=== PATIENT | male | born 1950 | race Caucasian/White ===

== ENCOUNTER 2017-10-03 10:31 | Inpatient (IN) | payer MEDICAID ==
[~2017-10-03] VITALS: Ht 172.7 cm; Wt 80.3 kg
[2017-10-03] MEDS ORDERED: ASPIRIN 325MG EC TABLET PO ONE (11:45)
[2017-10-03 12:11] LABS: BASOPHILS % 0.3 % (0.0-2.0); EOSINOPHILS % 0.1 % (0.0-5.0); HEMOGLOBIN. 14.7 g/dL (14.0-18.0); LYMPHOCYTES % 7.3 % (20.0-50.0); MEAN CORPUSCULAR HEMOGLOBIN 30.2 pg (28.0-32.0); MEAN CORPUSCULAR VOLUME 90.2 fL (80.0-94.0); MEAN PLATELET VOLUME 8.9 fl (7.4-10.4); MONOCYTES % 5.8 % (2.0-8.0); NEUTROPHILS % 86.5 % (40.0-76.0); PLATELET 110 x1000/uL (130-400); RED BLOOD CELL COUNT 4.87 mill/uL (4.7-6.1); RED CELL DISTRIBUTION WIDTH 15.7 % (11.6-14.6)
[2017-10-03 12:12] LABS: CHLORIDE 99 mEq/L (98-107)
[2017-10-03 12:15] LABS: INR 1.1; PARTIAL THROMBOPLASTIN TIME 26.1 sec (23.4-31.0)
[2017-10-03] MEDS ORDERED: SODIUM CHLORIDE 0.9% 1,000 ML IV ONE (12:39)
[2017-10-03] MEDS ORDERED: INSULIN REGULAR (HUMULIN R) UD 100 UNITS/ML SYR IV ONE (12:45)
[2017-10-03] MEDS ORDERED: HYDROCODONE/ACETAMINOPHEN 10/325MG TABLET PO PRN (19:15)
[2017-10-03] MEDS ORDERED: HYDROCODONE/ACETAMINOPHEN 5/325MG TABLET PO PRN (19:15)
[2017-10-03] MEDS ORDERED: DEXTROSE 50% WATER 50ML SYRINGE IV PRN (19:15)
[2017-10-03] MEDS ORDERED: MORPHINE SULFATE 4 MG/ML CPJ (NOT FOR IM USE) IV PRN (19:15)
[2017-10-03] MEDS ORDERED: ONDANSETRON HCL 4MG/2ML VIAL IV PRN (19:15)
[2017-10-03 20:00] VITALS: BP 104/69
[2017-10-03 20:25] LABS: BETA HYDROXYBUTYRATE 0.6 mMol/L (0.0-0.3)
[2017-10-03 20:27] LABS: CREATINE KINASE MB FRACTION 0.8 ng/mL (0.5-3.6)
[2017-10-03] MEDS: BLOOD SUGAR DIAGNOSTIC STRIP TEST SCH (21:00)
[2017-10-03] MEDS: ACETAMINOPHEN 325MG TABLET PO SCH (22:53)
[2017-10-03] MEDS: SODIUM CHLORIDE 0.45% 1,000 ML IV SCH (23:06)
[2017-10-03] MEDS: INSULIN LISPRO 100 UNITS/ML SUBCUT SCH (23:23)
[2017-10-04] VITALS: BP 107/71
[2017-10-04 04:00] VITALS: BP 92/56
[2017-10-04] MEDS: SODIUM CHLORIDE 0.45% 1,000 ML IV SCH ×2 (04:30→17:06)
[2017-10-04] MEDS: ACETAMINOPHEN 325MG TABLET PO SCH ×3 (05:00→20:59)
[2017-10-04] MEDS: BLOOD SUGAR DIAGNOSTIC STRIP TEST SCH ×4 (06:19→21:02)
[2017-10-04 06:48] LABS: CHLORIDE 106 mEq/L (98-107)
[2017-10-04 07:07] LABS: BASOPHILS % 0.3 % (0.0-2.0); EOSINOPHILS % 2.8 % (0.0-5.0); HEMATOCRIT. 40.4 % (42.0-52.0); HEMOGLOBIN. 13.7 g/dL (14.0-18.0); LYMPHOCYTES % 18.4 % (20.0-50.0); MEAN CORPUSCULAR HEMOGLOBIN 30.2 pg (28.0-32.0); MEAN PLATELET VOLUME 9.7 fl (7.4-10.4); MONOCYTES % 7.9 % (2.0-8.0); NEUTROPHILS % 70.6 % (40.0-76.0); PLATELET 108 x1000/uL (130-400); RED BLOOD CELL COUNT 4.54 mill/uL (4.7-6.1); RED CELL DISTRIBUTION WIDTH 15.7 % (11.6-14.6)
[2017-10-04 08:00] VITALS: BP 100/61
[2017-10-04] MEDS: INSULIN LISPRO 100 UNITS/ML SUBCUT SCH ×4 (08:07→21:27)
[2017-10-04 12:00] VITALS: BP 98/64
[2017-10-04] MEDS ORDERED: MAGNESIUM/ALUMINUM HYDROXIDE/SIMETHICONE 30ML UDC PO NR (12:30)
[2017-10-04] MEDS ORDERED: KCL 20MEQ/100ML PREMIX 100 ML IV NR (15:00)
[2017-10-04 16:00] VITALS: BP 110/74
[2017-10-04] MEDS ORDERED: IOHEXOL-300 100 ML BOTTLE ONE (19:23)
[2017-10-04 20:00] VITALS: BP 135/81
[2017-10-05] VITALS: BP 107/62
[2017-10-05 04:00] VITALS: BP 93/54
[2017-10-05] MEDS: ACETAMINOPHEN 325MG TABLET PO SCH ×3 (06:24→21:25)
[2017-10-05] MEDS: BLOOD SUGAR DIAGNOSTIC STRIP TEST SCH ×4 (06:26→21:25)
[2017-10-05 06:46] LABS: BASOPHILS % 0.4 % (0.0-2.0); EOSINOPHILS % 3.6 % (0.0-5.0); HEMATOCRIT. 42.6 % (42.0-52.0); HEMOGLOBIN. 14.4 g/dL (14.0-18.0); LYMPHOCYTES % 24.1 % (20.0-50.0); MEAN CORPUSCULAR HEMOGLOBIN 30.1 pg (28.0-32.0); MEAN CORPUSCULAR VOLUME 89.1 fL (80.0-94.0); MEAN PLATELET VOLUME 9.3 fl (7.4-10.4); MONOCYTES % 8.4 % (2.0-8.0); NEUTROPHILS % 63.5 % (40.0-76.0); PLATELET 126 x1000/uL (130-400); RED BLOOD CELL COUNT 4.78 mill/uL (4.7-6.1); RED CELL DISTRIBUTION WIDTH 15.7 % (11.6-14.6)
[2017-10-05] MEDS: INSULIN LISPRO 100 UNITS/ML SUBCUT SCH ×4 (06:46→21:25)
[2017-10-05 07:52] LABS: CHLORIDE 102 mEq/L (98-107)
[2017-10-05 08:00] VITALS: BP 97/61
[2017-10-05 08:00] LABS: AMYLASE 37 IU/L (25-115)
[2017-10-05 12:00] VITALS: BP 97/61
[2017-10-05 16:00] VITALS: BP 101/46
[2017-10-05] MEDS: SODIUM CHLORIDE 0.45% 1,000 ML IV SCH (17:41)
[2017-10-05 20:00] VITALS: BP 110/60
[2017-10-06] VITALS: BP 105/66
[2017-10-06] MEDS: PIPERACILLIN/TAZ 3.375G PREMIX 50 ML IV SCH ×5 (01:26→23:48)
[2017-10-06 04:00] VITALS: BP 112/60
[2017-10-06 06:26] LABS: BASOPHILS % 0.6 % (0.0-2.0); EOSINOPHILS % 3.7 % (0.0-5.0); HEMOGLOBIN. 15.2 g/dL (14.0-18.0); LYMPHOCYTES % 38.6 % (20.0-50.0); MEAN CORPUSCULAR HEMOGLOBIN 30.1 pg (28.0-32.0); MEAN CORPUSCULAR VOLUME 89.4 fL (80.0-94.0); MEAN PLATELET VOLUME 9.1 fl (7.4-10.4); MONOCYTES % 8.9 % (2.0-8.0); NEUTROPHILS % 48.2 % (40.0-76.0); PLATELET 142 x1000/uL (130-400); RED BLOOD CELL COUNT 5.03 mill/uL (4.7-6.1); RED CELL DISTRIBUTION WIDTH 15.9 % (11.6-14.6)
[2017-10-06] MEDS: ACETAMINOPHEN 325MG TABLET PO SCH ×3 (06:28→20:57)
[2017-10-06] MEDS: INSULIN LISPRO 100 UNITS/ML SUBCUT SCH ×4 (06:28→20:55)
[2017-10-06] MEDS: BLOOD SUGAR DIAGNOSTIC STRIP TEST SCH ×4 (06:29→20:55)
[2017-10-06 06:52] LABS: CHLORIDE 99 mEq/L (98-107)
[2017-10-06 07:06] LABS: AMYLASE 37 IU/L (25-115)
[2017-10-06 08:00] VITALS: BP 91/61
[2017-10-06 12:00] VITALS: BP 100/56
[2017-10-06 16:00] VITALS: BP 103/58
[2017-10-06] MEDS: SODIUM CHLORIDE 0.45% 1,000 ML IV SCH (17:01)
[2017-10-06 20:00] VITALS: BP 98/63
[2017-10-06] MEDS: CARVEDILOL 3.125 MG TABLET PO SCH (20:56)
[2017-10-06] MEDS: FUROSEMIDE 20MG TABLET PO SCH (20:57)
[2017-10-07] VITALS: BP 101/60
[2017-10-07 04:00] VITALS: BP 97/67
[2017-10-07] MEDS: ACETAMINOPHEN 325MG TABLET PO SCH ×3 (05:47→20:57)
[2017-10-07] MEDS: PIPERACILLIN/TAZ 3.375G PREMIX 50 ML IV SCH ×4 (05:48→23:08)
[2017-10-07] MEDS: BLOOD SUGAR DIAGNOSTIC STRIP TEST SCH ×4 (05:59→20:58)
[2017-10-07] MEDS: INSULIN LISPRO 100 UNITS/ML SUBCUT SCH ×4 (06:49→21:03)
[2017-10-07 07:02] LABS: BASOPHILS % 0.6 % (0.0-2.0); EOSINOPHILS % 4.8 % (0.0-5.0); HEMATOCRIT. 45.7 % (42.0-52.0); HEMOGLOBIN. 15.5 g/dL (14.0-18.0); MEAN CORPUSCULAR HEMOGLOBIN 30.3 pg (28.0-32.0); MEAN CORPUSCULAR VOLUME 89.1 fL (80.0-94.0); MONOCYTES % 8.2 % (2.0-8.0); NEUTROPHILS % 45.4 % (40.0-76.0); PLATELET 148 x1000/uL (130-400); RED BLOOD CELL COUNT 5.12 mill/uL (4.7-6.1)
[2017-10-07 08:00] VITALS: BP 87/62
[2017-10-07] MEDS: CARVEDILOL 3.125 MG TABLET PO SCH ×2 (08:16→20:57)
[2017-10-07] MEDS: LISINOPRIL 2.5MG TABLET PO SCH (08:16)
[2017-10-07] MEDS: FUROSEMIDE 20MG TABLET PO SCH ×2 (08:18→20:56)
[2017-10-07 08:26] LABS: CHLORIDE 100 mEq/L (98-107)
[2017-10-07] MEDS: INSULIN GLARGINE UD 100 UNITS/ML SYR SUBCUT SCH (11:14)
[2017-10-07 12:00] VITALS: BP 96/59
[2017-10-07] MEDS ORDERED: REGADENOSON 0.4 MG/5 ML IV ONE (14:15)
[2017-10-07 16:00] VITALS: BP 89/59
[2017-10-07 20:00] VITALS: BP 90/59
[2017-10-07] MEDS ORDERED: INSULIN GLARGINE UD 100 UNITS/ML SYR SUBCUT SCH (22:00)
[2017-10-08] VITALS: BP 94/67
[2017-10-08 04:00] VITALS: BP 96/57
[2017-10-08 05:05] LABS: BASOPHILS % 0.5 % (0.0-2.0); EOSINOPHILS % 4.8 % (0.0-5.0); HEMATOCRIT. 46.2 % (42.0-52.0); HEMOGLOBIN. 15.7 g/dL (14.0-18.0); MEAN CORPUSCULAR HEMOGLOBIN 30.3 pg (28.0-32.0); MEAN CORPUSCULAR VOLUME 89.2 fL (80.0-94.0); MEAN PLATELET VOLUME 8.9 fl (7.4-10.4); NEUTROPHILS % 51.7 % (40.0-76.0); PLATELET 169 x1000/uL (130-400); RED BLOOD CELL COUNT 5.17 mill/uL (4.7-6.1); RED CELL DISTRIBUTION WIDTH 15.8 % (11.6-14.6)
[2017-10-08 05:17] LABS: CHLORIDE 101 mEq/L (98-107)
[2017-10-08] MEDS: ACETAMINOPHEN 325MG TABLET PO SCH ×2 (06:18→13:00)
[2017-10-08] MEDS: PIPERACILLIN/TAZ 3.375G PREMIX 50 ML IV SCH ×2 (06:18→12:00)
[2017-10-08] MEDS: BLOOD SUGAR DIAGNOSTIC STRIP TEST SCH ×3 (06:19→16:52)
[2017-10-08] MEDS: INSULIN LISPRO 100 UNITS/ML SUBCUT SCH ×3 (06:26→17:15)
[2017-10-08 08:00] VITALS: BP 95/63
[2017-10-08] MEDS ORDERED: REGADENOSON 0.4 MG/5 ML IV ONE (08:25)
[2017-10-08] MEDS: FUROSEMIDE 20MG TABLET PO SCH (09:00)
[2017-10-08] MEDS: LISINOPRIL 2.5MG TABLET PO SCH (09:00)
[2017-10-08] MEDS: CARVEDILOL 3.125 MG TABLET PO SCH (09:00)
[2017-10-08] MEDS: INSULIN GLARGINE UD 100 UNITS/ML SYR SUBCUT SCH (10:29)
[2017-10-08 12:00] VITALS: BP 94/66
[2017-10-08] MEDS ORDERED: LANTUSUD SUBCUT ×2 (14:40)
[2017-10-08] MEDS ORDERED: FURO20TA4 PO (14:40)
[2017-10-08] MEDS ORDERED: LISI2.5T47 PO (14:40)
[2017-10-08] MEDS ORDERED: INSLIS SUBCUT (14:40)
[2017-10-08] MEDS ORDERED: COR3 PO (14:40)
[2017-10-08 16:00] VITALS: BP 97/62
[2017-10-08 16:35] VITALS: BP 97/62
== END 2017-10-08 17:25 | disposition home or self-care (01) | DRG 282 ==
LOC: ER 10:31 → 5WST 13:45 → ENRESERV 15:40
PROVIDERS: ADMIT Internal Medicine; ATTEND Internal Medicine
DX: K85.90 Acute pancreatitis without necrosis or infection, unspecified (principal); I95.9 Hypotension, unspecified; I11.0 Hypertensive heart disease with heart failure; I42.0 Dilated cardiomyopathy; I50.20 Unspecified systolic (congestive) heart failure; E11.65 Type 2 diabetes mellitus with hyperglycemia; K80.20 Calculus of gallbladder without cholecystitis without obstruction; D46.9 Myelodysplastic syndrome, unspecified; K76.0 Fatty (change of) liver, not elsewhere classified; J44.9 Chronic obstructive pulmonary disease, unspecified; D63.8 Anemia in other chronic diseases classified elsewhere; I95.1 Orthostatic hypotension; K31.9 Disease of stomach and duodenum, unspecified; E87.6 Hypokalemia; F17.210 Nicotine dependence, cigarettes, uncomplicated; Z71.6 Tobacco abuse counseling; Z79.4 Long term (current) use of insulin; Z79.899 Other long term (current) drug therapy
CPT/HCPCS: 36415; 71045; 74177; 76700; 78227; 78452; 80048; 80053; 80061; 80076; 82010; 82150; 82550; 82553; 82962; 82977; 83036; 83690; 83735; 84484; 85025; 85610; 85730; 93005; 93017; 93306; 96361; 96374; 99285; A9500; A9537; J1815; J2543; J2785; J3480; J7030; Q9967

== ENCOUNTER 2017-10-16 01:06 | Emergency (ER) | payer MEDICAID ==
[~2017-10-16] VITALS: Ht 172.7 cm; Wt 77.0 kg
[~2017-10-16 01:06] MED LIST: COR3 PO; FURO20TA4 PO; INSLIS SUBCUT; LANTUSUD SUBCUT; LISI2.5T47 PO
[2017-10-16 04:43] LABS: BASOPHILS % 0.6 % (0.0-2.0); EOSINOPHILS % 3.1 % (0.0-5.0); HEMATOCRIT. 41.9 % (42.0-52.0); HEMOGLOBIN. 14.1 g/dL (14.0-18.0); LYMPHOCYTES % 13.5 % (20.0-50.0); MEAN CORPUSCULAR HEMOGLOBIN 30.5 pg (28.0-32.0); MEAN CORPUSCULAR VOLUME 90.6 fL (80.0-94.0); MEAN PLATELET VOLUME 8.5 fl (7.4-10.4); MONOCYTES % 9.2 % (2.0-8.0); NEUTROPHILS % 73.6 % (40.0-76.0); PLATELET 196 x1000/uL (130-400); RED BLOOD CELL COUNT 4.62 mill/uL (4.7-6.1); RED CELL DISTRIBUTION WIDTH 15.3 % (11.6-14.6)
[2017-10-16 04:49] LABS: CHLORIDE 99 mEq/L (98-107)
[2017-10-16 04:50] LABS: PROTHROMBIN TIME 10.2 sec (9.4-11.6)
[2017-10-16] MEDS ORDERED: SODIUM CHLORIDE 0.9% 1,000 ML IV ONE ×2 (04:52→05:57)
[2017-10-16 04:58] LABS: BG BASE EXCESS 0.6 mmol/L (-2.0-2.0); BG DEOXYHEMOGLOBIN 13.8 % (0.0-5.0); BG FRACTION INSPIRED OXYGEN 21; BG HCO3 ACT 26.4 mmol/L (22.0-26.0); BG METHEMOGLOBIN 0.3 % (0.0-1.5); BG OXYHEMOGLOBIN 84.9 % (94.0-97.0); BG PCO2 46.5 mmHg (35.0-45.0); BG PH 7.372 (7.350-7.450); BG PO2 50.9 mmHg (75.0-100.0); BG SAMPLE SITE OTHER; BG TOTAL HEMOGLOBIN 15.1 g/dL (12.0-18.0); BG VENT MODE ROOM AIR
[2017-10-16 05:31] LABS: BETA HYDROXYBUTYRATE 0.5 mMol/L (0.0-0.3)
[2017-10-16] MEDS ORDERED: IOHEXOL-300 100 ML BOTTLE ONE (06:34)
[2017-10-16 07:13] VITALS: BP 134/80
== END 2017-10-16 07:18 | disposition home or self-care (01) ==
LOC: ER 06:58
DX: R09.81 Nasal congestion (principal); J34.89 Other specified disorders of nose and nasal sinuses; R05 Cough; R06.02 Shortness of breath; R13.10 Dysphagia, unspecified; R07.0 Pain in throat; E11.65 Type 2 diabetes mellitus with hyperglycemia; I10 Essential (primary) hypertension; F17.200 Nicotine dependence, unspecified, uncomplicated; Z79.4 Long term (current) use of insulin
CPT/HCPCS: 36415; 36600; 70498; 71045; 80053; 82010; 82375; 82805; 82962; 83880; 84484; 85025; 85610; 93005; 96360; 99285; J7030; Q9967; Z7610